=== PATIENT | female | born 1950 | race Caucasian/White ===

== ENCOUNTER 2020-12-29 10:21 | Outpatient (CLI) | payer MEDICARE, SELFPAY ==
[2020-12-29 14:57] LABS: SARS-CoV-2 RNA PCR Negative (Negative)
== END 2020-12-29 10:22 | disposition home or self-care (01) ==
LOC: CHSLAB 10:24
PROVIDERS: Visit Provider Family Medicine
DX: Z01.818 Encounter for other preprocedural examination (principal); Z20.822 Contact with and (suspected) exposure to COVID-19
CPT/HCPCS: C9803; U0003; U0005

== ENCOUNTER 2021-01-02 11:09 | Outpatient (CLI) | payer MEDICARE, SELFPAY ==
[2021-01-02 12:37] LABS: SARS-CoV-2 RNA PCR Negative (Negative)
== END 2021-01-02 11:10 | disposition home or self-care (01) ==
LOC: CHSLAB 11:12
PROVIDERS: Visit Provider Family Medicine
DX: Z01.818 Encounter for other preprocedural examination (principal); Z20.822 Contact with and (suspected) exposure to COVID-19
CPT/HCPCS: C9803; U0003; U0005

== ENCOUNTER 2024-01-19 11:55 | Outpatient (CLI) | payer MEDICARE, SELFPAY ==
--- NOTE | ~2024-01-19 | XR_ITS ---
EXAMINATION: XR_[id number]_CR DATE: 01/19/2024 12:50 INDICATION: Cervical radiculopathy. TECHNIQUE: 4 views of cervical spine were obtained. COMPARISON: None. FINDINGS: There is 2 mm anterolisthesis of C4 on C5 and 3 mm anterolisthesis of C7 on T1. Vertebral b yaz heights are normal. There is moderately decreased disc height at C3-C4 and C4-C5 and severely dec reased disc height at C5-C6 and C6-C7. There is multilevel facet joint osteoarthritis, severe bilater ally at C7-T1. There is mild central canal stenosis at C4-C5, C5-C6, and C6-C7. No prevertebral soft tissue swelling. IMPRESSION: 1. Severe cervical spondylosis. Reviewed, dictated and finalized at location A.
== END 2024-01-19 11:56 | disposition home or self-care (01) ==
LOC: CHSIMG 12:01
PROVIDERS: PCP Physician Assistant; Visit Provider Physician Assistant
DX: M54.12 Radiculopathy, cervical region (principal); M43.02 Spondylolysis, cervical region
CPT/HCPCS: 72040

== ENCOUNTER 2024-02-01 10:34 | Outpatient (CLI) | payer MEDICARE, SELFPAY ==
--- NOTE | ~2024-02-01 | MR_ITS ---
EXAMINATION: MR cervical spine wo con DATE: 02/01/2024 11:12 INDICATION: Chronic neck pain. Spinal stenosis. TECHNIQUE: Magnetic resonance imaging (MRI) of the cervical spine was performed without intravenous c ontrast. Sequences included sagittal T2-weighted FSE, sagittal T2-weighted FS FSE, sagittal T1-weight ed FSE, axial MERGE, and axial T2-weighted FSE. COMPARISON: Cervical spine MRI 08/01/18 FINDINGS: There is 3 degrees levocurvature of cervical spine. There is mild kyphosis of cervical spin e. There is 2 mm anterolisthesis of C4 on C5 and C7 on T1. Vertebral body heights are normal. There i s moderately decreased disc height at C3-C4 and C4-C5 and severely decreased disc height at C5-C6 and C6-C7. The spinal cord signal intensity is normal. The following disc levels are specifically discus sed: C2-C3: There is a central protrusion. There is no uncovertebral joint osteoarthritis. There is modera te right facet joint osteoarthritis. There is mild right neural foraminal stenosis. There is no centr al canal stenosis. C3-C4: The disc is bulging. There is severe bilateral uncovertebral joint osteoarthritis. There is se constantino bilateral facet joint osteoarthritis. There is mild right and moderate left neural foraminal megha nosis. There is mild central canal stenosis. C4-C5: The disc is bulging. There is severe bilateral uncovertebral joint osteoarthritis. There is se constantino bilateral facet joint osteoarthritis. There is moderate right and mild left neural foraminal megha nosis. There is mild central canal stenosis. C5-C6: The disc is bulging. There is severe bilateral uncovertebral joint osteoarthritis. There is mo derate bilateral facet joint osteoarthritis. There is mild right and moderate left neural foraminal s tenosis. There is mild central canal stenosis. C6-C7: The disc is bulging. There is severe bilateral uncovertebral joint osteoarthritis. There is mo derate right and mild left facet joint osteoarthritis. There is mild bilateral neural foraminal steno sis. There is mild central canal stenosis. C7-T1: There is a central extrusion. There is no uncovertebral joint osteoarthritis. There is severe bilateral facet joint osteoarthritis. There is mild bilateral neural foraminal stenosis. There is mil d central canal stenosis. IMPRESSION: 1. Severe cervical spondylosis, stable from 08/01/18. Reviewed, dictated and finalized at location A.
== END 2024-02-01 10:35 | disposition home or self-care (01) ==
LOC: CHSIMG 10:38
PROVIDERS: PCP Physician Assistant; Visit Provider Physician Assistant
DX: M48.02 Spinal stenosis, cervical region (principal); M43.02 Spondylolysis, cervical region
CPT/HCPCS: 72141

== ENCOUNTER 2024-09-01 17:19 | Emergency (ER) | payer MEDICARE, SELFPAY ==
--- NOTE | ~2024-09-01 | XR_ITS ---
HISTORY: Fall, Lt. knee pain/bruising x3 days COMPARISON: None TECHNIQUE: 3 views of the left knee were performed FINDINGS: No acute or subacute fracture, erosion, lytic or sclerotic lesion. Medial tibiofemoral joint space narrowing is identified. No suprapatellar joint effusion is identified. The infrapatellar joint space is clear. Soft tissue swelling is identified anterior to the infrapatellar joint space. IMPRESSION: Trace degenerative disease, without acute fracture. Reviewed, dictated and finalized at location A.
[2024-09-01 17:21] VITALS: BP 126/77; PULSE 89; RESP 18; TEMP 36.8; O2SAT 96
--- OUTSIDE RECORDS SUMMARY | 2024-09-01 17:21 | XMS_ITS | Continuity of Care Document ---
Author Organization [facility] Address [address] [place] [address] [address] [place] [address] Phone Care Team Providers Care Acid Patroller Name Role Phone Luke Powell MD Unavailable Unavailable Allergies, Adverse Reactions, Alerts Substance Reaction Status Criticality No Known Allergies Active No Inform ation Procedures Procedure Date No Charge Refraction IOLMaster-Technical No Charge Orbscan Fundus Photography W/ Report No Charge GDX Retina Eye Exam, New Patient Advance Directives Directive Yes / No Effective Date File Name No Information Encounters Encounter Description Practice Location Reason(s) For Visit Diagnoses Date Provider Providers Copied on Encounter [facility], [address] [place] [address] [address], [place], [place], [id number], tel:[phone] SEC [facility] Ned No Information Andre Butler. [address] [facility] [address], [place], [place], [id number], [place]. tel:[phone] [facility], [address] [place] [address] [address], [place], [place], [id number], tel:[phone] SEC Thomas DANGELO Professional Cataract evaluation (chief complaint) Amblyopia, rightET (esotropia)Co mbined forms of age-related cataract, bilateralArcu s senilis of both corneasDry eye syndrome of left lacrimal glandChoroida l nevus, right 1 Andre Butler. [address], [place], [place], [id number], . tel:[phone] Referring Provider: Luke Andre Dontae, [address], [place], [address] . tel:[phone] Family History Family Member Type Diagnosis Age At Onset Problem Family history of Diabetes m rand Payers Payer name Insurance type Covered democrat ID Andrew thomas(s) AAR Medicare Complete CI [id number] [place] [id number] Social History Type Description Quantity Date Captured Comments Alcohol Use Details No Caffeine Use Details 3 cups per day Tobacco Use Status Smoking Status Heavy tobacco smoker Sex Female Chief Complaint And Reason For Visit No Information Reason For Referral Reason For Referral No Information Plan Of Treatment Date Type Action Status Goal Tobacco cessation counseling completed Patient Education Cataract Surgery: What to Expect at H~ completed History Of Present Illness Encounter Date Complaint History Of Prese nt Illness Cataract evaluation The 70 year old female presents for evaluation of Cataract evaluation in the right eye and left eye. Hx of CAT OU. Pt denies any past ocular injuries but reports grease popped in her OD once. Pt reports she has trouble reading street signs while driving, trouble driving at night and trouble reading small print up close, OU, x 20 yrs. Pt reports she doesn't use any gtts, OU. Functional Status Date Functional Assessmen t No Information Instructions Date Instruction Additional Infor mation Impression/Plan Assessments Type Assessment Date No Information Patient Care Teams Name Effective Dates (start - stop) Status Members No Information
--- OUTSIDE RECORDS SUMMARY | 2024-09-01 17:21 | XMS_ITS | Clinical Summary ---
Author Organization [facility] Address [address] [place] [address] Care Team Providers Care Plant Tender Name Role Phone Adelaide Tucker Primary Care Provider [phone] Annie Lucas CAR PINCHER-BC Unavailable Allergies No known active allergies Medications cyclobenzaprine 10 MG tablet Take 1 tablet by mouth 3 (three) times daily as needed. 10/16/2020 Active amLODIPine-eddie zepril 5-20 MG capsule Take 1 capsule by mouth daily. 12/02/2020 Active Active Problems No known active problems Social History Tobacco Use Types Packs/Day Years Used Date Smoking Tobacco: Every Day Alcohol Use Standard Drinks/Week Comments Never 0 (1 standard drink = 0.6 oz pur e alcohol) Comments Unknown Sex and Gender Information Value Date Recorded Sex Assigned at Not on file Legal Sex Female 4:12 PM CDT Gender Identity Not on file Sexual Orientation Not on file Last Filed Vital Signs Vital Sign Reading Time Taken Comments Blood Pressure 139/70 12/30/2020 9:29 AM CDT Pulse 89 12/30/2020 9:28 AM CDT Temperature - - Respiratory Rate 17 12/30/2020 9:28 AM CDT Oxygen Saturation 96% 12/30/2020 9:28 AM CDT Inhaled Oxygen Concentration - - Weight 76.2 kg (168 lb) 12/30/2020 9:28 AM CDT Height 162.6 cm (5' 4 ) 12/30/2020 9:28 AM CDT Body Mass Index 28.84 12/30/2020 9:28 AM CDT Plan of Treatment Health Maintenance Due Date Last Done Comments Colorectal Cancer Screening Colonoscopy (10 Years) 1950 Hepatitis C 12/07/1969 DTaP, Tdap and Td Vaccines ( 1 - Tdap) 12/07/1970 Pneumococcal Vaccine: 50+ Ye ars (1 of 2 - PCV) 12/07/1970 Mammogram Screening 1991 Zoster Vaccines (1 of 2) 12/07/2001 Annual Medicare Wellness Visit 12/07/2016 Dexa Scan (General) 12/07/2016 COVID-19 Vaccine ( - 2023-2 5 season) 2023 RSV Immunization or 60+ Years (1 - 1-dose 75+ series) 12/07/2026 Meningococcal B Vaccine Aged Out No l onger eligible based on patient's age to complete this topic Meningococcal Vaccine Aged Out No kevin matthias eligible based on patient's age to complete this topic RSV Immunizations Under 20 Months Aged Out No longer eligible based on patient's age to complete this topic Insurance MEDICAID Care Teams Plant Tender Relationship Specialty Start Date End [place] [address] PCP - General FAMILY PRACTICE 12/24/20 Annie Lucas, [place] [address] NURSE PRACTITIONER 12/24/20
--- NOTE | 2024-09-01 17:33 | ED_ITS ---
HPI - General Adult General Chief complaint: Extremity Injury, Lower Stated complaint: fall Time Seen by Provider: 09/01/24 17:32 History of Present Illness HPI narrative: Hayley is a 73F with a PMH of chronic neck pain, tobacco dependence that presented to the ED with a swollen left knee after she fell through a bad board on her deck 2 days ago. She had immediate pain but the swelling and discoloration are getting worse so she came in. No CP or dyspnea. Related Data Home Medications Medication Instructions Recorded Confirmed Last Taken Type amlodipine 10 mg tablet 20 mg PO DAILY 07/05/24 07/05/24 Unknown History aspirin 81 mg tablet,delayed 81 mg PO DAILY 07/05/24 07/05/24 Unknown History release (Adult Low Dose Aspirin) cyclobenzaprine 5 mg tablet 5 mg PO TID PRN 07/05/24 07/05/24 Unknown History Allergies Allergy/AdvReac Type Severity Reaction Status Date / Time gabapentin Allergy Mild Unknown Verified 09/01/24 17:29 Review of Systems 2 Review of Systems: All systems reviewed & are unremarkable except as noted in HPI and below PMFSH Past Medical History Medical History Low bone mass Tobacco dependence Surgical History Surgical History History of bilateral tubal ligation 1979 Hx of cholecystectomy AGE 32 Family History Family History Mother Hypertension Family history of dementia Father Family history of malignant neoplasm of bone, Onset Age: 81 Mother Hypertension Family history of dementia Other Cerebrovascular accident Diabetes mellitus Family history of cardiovascular disease Family history of throat cancer Social History Social History Smoking status: Current every day smoker Alcohol intake: never Exam 2 Const: General: cooperative, healthy appearing, comfortable, no acute distress, well developed, alert, awake and Physically active O rientation/consciousness: oriented to person, oriented to place and oriented to time HENMT: Head: normal to inspection, normocephalic and atraumatic Ears: h earing grossly normal bilaterally and external ears normal Face/Nose/Sinus: N ormal external nose present Eyes: General: appearance normal, both eyes and all related structures P eriorbital: periorbital findings normal Sclera: sclerae normal Pupils: E qual, round and reactive pupils present Neck: Neck: normal visual inspection Chest: Chest palpation & inspection: normal inspection of the chest Resp: Effort & Inspection: normal respiratory effort, able to speak in complete sentences and no respiratory distress Cardio: Jugular venous distension: no JVD Skin: General skin exam: normal color and no rashes or lesions noted Neuro: General: oriented to person, oriented to place and oriented to time Cranial nerves: Yes Equal, round and reactive pupils present Extrem: General: normal to inspection Course Course Emergency Course: ordered radiographs and labs. HISTORY: Fall, Lt. knee pain/bruising x3 days COMPARISON: None TECHNIQUE: 3 views of the left knee were performed FINDINGS: No acute or subacute fracture, erosion, lytic or sclerotic lesion. Medial tibiofemoral joint space narrowing is identified. No suprapatellar joint effusion is identified. The infrapatellar joint space is clear. Soft tissue swelling is identified anterior to the infrapatellar joint space. IMPRESSION: Trace degenerative disease, without acute fracture. Labs were significant for an elevated D-dimer. Lovenox was given and she was set up for and outpatient US. Vital Signs Vital signs: Vital Signs Temperature 98.3 F 09/01/24 17:21 Pulse Rate 89 09/01/24 17:21 Respiratory Rate 18 09/01/24 17:21 Blood Pressure 126/77 09/01/24 17:21 Pulse Oximetry 96 09/01/24 17:21 Oxygen Delivery Room Air 09/01/24 17:21 Temperature 98.3 F 09/01/24 17:21 Pulse Rate 89 09/01/24 17:21 Respiratory Rate 18 09/01/24 17:21 Blood Pressure 126/77 09/01/24 17:21 Pulse Oximetry 96 09/01/24 17:21 Oxygen Delivery Room Air 09/01/24 17:21 Medical Decision Making Vital Signs Vital Signs: Vital Signs Temperature 98.3 F 09/01/24 17:21 Pulse Rate 89 09/01/24 17:21 Respiratory Rate 18 09/01/24 17:21 Blood Pressure 126/77 09/01/24 17:21 Pulse Oximetry 96 09/01/24 17:21 Oxygen Delivery Room Air 09/01/24 17:21 Temperature 98.3 F 09/01/24 17:21 Pulse Rate 89 09/01/24 17:21 Respiratory Rate 18 09/01/24 17:21 Blood Pressure 126/77 09/01/24 17:21 Pulse Oximetry 96 09/01/24 17:21 Oxygen Delivery Room Air 09/01/24 17:21 Lab Data 09/01/24 18:46 09/01/24 18:46 Labs: Lab Results 09/01/24 Range/Units 18:46 WBC 10.3 (4.8-10.8) K/mm3 RBC 4.89 (4.20-5.40) M/mm3 Hgb 14.7 H (11.7-13.8) g/dL Hct 45.8 H (35.0-42.0) % MCV 93.7 (78.0-102.0) fL MCH 30.1 (27.0-31.0) pg MCHC 32.1 (32-36) g/dL RDW 13.4 (11.6-14.4) % Plt Count 196 (150-420) K/mm3 MPV 9.8 (9.2-11.8) fl Immature Gran % (Auto) 0.3 H (0.0-0.0) % Neut % (Auto) 59.7 (50.0-70.0) % Lymph % (Auto) 31.6 (18.0-42.0) % Baldwin % (Auto) 5.6 (2.0-11.0) % Eos % (Auto) 2.4 (1.0-6.0) % Baso % (Auto) 0.4 (0.0-1.0) % Lymph # (Auto) 3.25 (1.10-4.50) K/mm3 Baldwin # (Auto) 0.58 (0.10-0.90) K/mm3 Eos # (Auto) 0.25 (0.02-0.50) K/mm3 Baso # (Auto) 0.04 (0.00-0.10) K/mm3 Abs Immat Gran (auto) 0.03 H (0.00-0.00) K/mm3 Absolute Neuts (auto) 6.15 (1.70-7.20) K/mm3 Absolute Nucleated RBC 0.00 (0.00-0.00) K/mm3 Nucleated RBC % 0.0 (0-0.0) % PT 10.8 (9.50-12.1) Seconds INR 1.0 D-Dimer 4.34 H* (0.19-0.50) mg/L Sodium 143 (136-145) mmol/L Potassium 3.9 (3.5-5.1) mmol/L Chloride 105 (98-108) mmol/L Carbon Dioxide 29 (21-32) mmol/L Anion Gap 9 (4-12) mmol/L BUN 17 (7-18) mg/dL Creatinine 1.11 H (0.55-1.02) mg/dL Estim Creat Clear Calc 37 ml/min Estimated GFR 48 L (59 - ) Glucose 68 L (70-99) mg/dL Calculated Osmolality 295 (285-295) mOsm/kg Calcium 9.2 (8.5-10.1) mg/dL Total Bilirubin 0.7 (0.00-1.00) mg/dL AST 19 (15-37) U/L ALT 30 (14-59) U/L Alkaline Phosphatase 76 (46-116) U/L Total Protein 7.1 (6.4-8.2) g/dL Albumin 3.8 (3.4-5.0) g/dL Discharge Plan Discharge Clinical Impression: Edema of left lower extremity Patient Disposition: Home Condition: Stable Instructions: Enoxaparin (By injection) Additional Instructions: Please return tomorrow before 0700 to have the ultrasound completed. Return for any new, concerning or worsening symptoms in the mean time. Patient Language: Upper Sorbian Prescriptions: New enoxaparin [Lovenox] 80 mg/0.8 mL syringe 80 mg subcut Q12H Qty: 1 0RF No Action aspirin [Adult Low Dose Aspirin] 81 mg tablet,delayed release (DR/EC) 81 mg PO DAILY cyclobenzaprine 5 mg tablet 5 mg PO TID PRN amlodipine 10 mg tablet 20 mg PO DAILY Other Ambulatory Orders: US venous doppler LE LT (Routine) Timeframe: 1 Day Facility: [facility] [place] - Location: [facility] Imaging Ordered By: Jefe Martinez Follow-up/Referrals: Izabella,ZACHERY Washington [Primary Care Provider] -
--- OUTSIDE RECORDS SUMMARY | 2024-09-01 17:44 | XMS_ITS | Data Portability ---
Author Organization [facility] Address [address] [place] [address] Care Team Providers Care Creative Services Designer Name Role Phone ISABELA ARTEMIO Primary Care Provider [phone] Assessment No assessment recorded. Plan of Treatment Reminders Order Date Submit Date Provider Last Modified By Organization Details Last Modified Time Details Appointments None recorded. Lab CBC 2023 024 [facility], [address] [facility] [address], [place], [address], 4 10:14:54 CMP, serum or plasma 2023 024 [facility], [address] [facility], [place], [address], 4 10:14:52 lipid panel, serum 2023 024 [facility], [address] [facility], [place], [address], 4 10:14:52 HbA1c (hemoglob in A1c), blood 2023 024 [facility] In-Office Order, Internal Use Only DO Not Attach Compendium DO Not Attach Compendium, Do Not Delete/merge, [id number] 4 15:10:45 Referral pain managemen t referral 2024 025 daniel Gray MD, [address], [place], [address], 5 15:41:03 Procedures None recorded. Surgeries None recorded. Imaging XR, cervical spine, 2 or 3 view 2023 [facility] (Registration ), [address] [place], [address], 4 21:01:56 Medication Orders amlodipin e 2.5 mg tablet 2024 025 [facility] [address], [address], 5 16:24:44 captopril 25 mg tablet 2024 025 [facility] [address] In [facility], [address] [place] [address], [address], 5 16:24:44 amoxicill in 875 mg tablet 2023 025 [facility][id number], [address], [place], [place], [id number], 5 15:40:48 cyclobenz aprine 5 mg tablet 2023 025 [facility] #05043, [address], [place], [place], [id number], 5 15:41:04 celecoxib 200 mg capsule 2023 024 [facility] #13281, [address], [place], [place], [id number], 5 15:40:46 pregabali n 75 mg capsule 2023 024 [facility] #99644, [address], [place], [place], [id number], 4 16:49:34 Patient TargetsNo targets recorded. Patient Instructions Encounter Date Encounter Id Patient Instructions Last Modified By Organization Details Last Modified Time 11/13/2023 [id number] A healthy lifestyle: care instructions jnanney Not available 11/13/2023 14:48:26 learning about high blood pressure jnanney Not available 11/13/2023 14:48:26 03/13/2024 [id number] A healthy lifestyle: care instructions jnanney Not available 03/13/2024 15:10:42 cervical spinal stenosis: care instructions jnanney Not available 03/13/2024 15:10:42 Acute Sinusitis: Care Instructions jnanney Not available 03/13/2024 15:12:18 08/27/2024 [id number] learning about high blood pressure jnanney Not available 08/27/2024 16:24:42 A healthy lifestyle: care instructions jnanney Not available 08/27/2024 16:26:40 Reason for Referral Pain Management Referral for Cervical radiculopathy Referring Physician: Artemio Parekh, Family Medicine, Encounter Date: 08/27/2024 Results Created Date Observation Date Name Description Value Unit Range Abnormal Flag Note LastModifiedBy Organization Detail LastModifiedTime 11/13/19 24 11/14/2023 LIPID PANEL cholesterol, total 244 mg/dL 100-19 9 above high normal Not Available [address], [address], 11/14/2023 10:14:52 11/13/19 24 11/14/2023 LIPID PANEL triglyceride s 218 mg/dL 0-149 above high normal Not Available [address], [address], 11/14/2023 10:14:52 11/13/19 24 11/14/2023 LIPID PANEL HDL cholesterol 34 mg/dL >39 below low normal Not Available [address], [address], 11/14/2023 10:14:52 11/13/19 24 11/14/2023 LIPID PANEL VLDL cholesterol elmira 41 mg/dL 5-40 above high normal Not Available [facility] [address], [address], 11/14/2023 10:14:52 11/13/19 24 11/14/2023 LIPID PANEL LDL chol calc ([facility]) 169 mg/dL 0-99 above high normal Not Available [address], [address], 11/14/2023 10:14:52 11/13/19 24 11/14/2023 COMP. METAB OLIC PANEL (14) glucose 166 mg/dL 70-99 above high normal Not Available [address], [address], 11/14/2023 10:14:52 11/13/19 24 11/14/2023 COMP. METAB OLIC PANEL (14) BUN 18 mg/dL 8-27 Not Available [address], [address], 11/14/2023 10:14:52 11/13/19 24 11/14/2023 COMP. METAB OLIC PANEL (14) creatinine 0.98 mg/dL 0.57-1 .00 Not Available [address], [address], 11/14/2023 10:14:52 11/13/19 24 11/14/2023 COMP. METAB OLIC PANEL (14) eGFR 62 mL/mi n/1.7 3 >59 Not Available [address], [address], 11/14/2023 10:14:52 11/13/19 24 11/14/2023 COMP. METAB OLIC PANEL (14) BUN/creatini ne ratio 18 12-28 Not Available [address], [address], 11/14/2023 10:14:52 11/13/19 24 11/14/2023 COMP. METAB OLIC PANEL (14) sodium 142 mmol/ L 134-14 4 Not Available [address], [address], 11/14/2023 10:14:52 11/13/19 24 11/14/2023 COMP. METAB OLIC PANEL (14) potassium 4.8 mmol/ L 3.5-5. 2 Not Available [address], [address], 11/14/2023 10:14:52 11/13/19 24 11/14/2023 COMP. METAB OLIC PANEL (14) chloride 101 mmol/ L 96-106 Not Available [address], [address], 11/14/2023 10:14:52 11/13/19 24 11/14/2023 COMP. METAB OLIC PANEL (14) carbon dioxide, total 25 mmol/ L 20- Not Available [address], [address], 11/14/2023 10:14:52 11/13/19 24 11/14/2023 COMP. METAB OLIC PANEL (14) calcium 9.7 mg/dL 8.7-10 .3 Not Available [address], [address], 11/14/2023 10:14:52 11/13/19 24 11/14/2023 COMP. METAB OLIC PANEL (14) protein, total 6.9 g/dL 6.0-8. 5 Not Available [address], [address], 11/14/2023 10:14:52 11/13/19 24 11/14/2023 COMP. METAB OLIC PANEL (14) albumin 4.5 g/dL 3.8-4. 8 Not Available [address] [place], [address], 11/14/2023 10:14:52 11/13/19 24 11/14/2023 COMP. METAB OLIC PANEL (14) globulin, total 2.4 g/dL 1.5-4. 5 Not Available [address], [address], 11/14/2023 10:14:52 11/13/19 24 11/14/2023 COMP. METAB OLIC PANEL (14) bilirubin, total 0.8 mg/dL 0.0-1. 2 Not Available [address], [address], 11/14/2023 10:14:52 11/13/19 24 11/14/2023 COMP. METAB OLIC PANEL (14) alkaline phosphatase 87 IU/L 44-121 Not Available [address], [address], 11/14/2023 10:14:52 11/13/19 24 11/14/2023 COMP. METAB OLIC PANEL (14) AST (SGOT) 25 IU/L 0-40 Not Available [address], [address], 11/14/2023 10:14:52 11/13/19 24 11/14/2023 COMP. METAB OLIC PANEL (14) ALT (SGPT) 27 IU/L 0-32 Not Available [address], [address], 11/14/2023 10:14:52 11/13/19 24 11/14/2023 SANTI RODAS T interpretati on Note Suppl brian jang is avail able. Not Available [address], [address], 11/14/2023 10:14:53 11/13/19 24 11/14/2023 CARDI LUC RODAS T pdf . Not Available [address], [address], 11/14/2023 10:14:53 11/13/19 24 11/14/2023 CBC, PLATE LET, NO DIFFE RENTI AL WBC 10.9 x10e3 /uL 3.4-10 .8 above high normal Not Available [address], [address], 11/14/2023 10:14:54 11/13/19 24 11/14/2023 CBC, PLATE LET, NO DIFFE RENTI AL RBC 5.52 x10e6 /uL 3.77-5 .28 above high normal Not Available [address], [address], 11/14/2023 10:14:54 11/13/19 24 11/14/2023 CBC, PLATE LET, NO DIFFE RENTI AL hemoglobin 16.4 g/dL 11.1-1 5.9 above high normal Not Available [address], [address], 11/14/2023 10:14:54 11/13/19 24 11/14/2023 CBC, PLATE LET, NO DIFFE RENTI AL hematocrit 50.7 % 34.0-4 6.6 above high normal Not Available [address], [address], 11/14/2023 10:14:54 11/13/19 24 11/14/2023 CBC, PLATE LET, NO DIFFE RENTI AL MCV 92 fL 79-97 Not Available [address], [address], 11/14/2023 10:14:54 11/13/19 24 11/14/2023 CBC, PLATE LET, NO DIFFE RENTI AL MCH 29.7 pg 26.6-3 3.0 Not Available [address], [address], 11/14/2023 10:14:54 11/13/19 24 11/14/2023 CBC, PLATE LET, NO DIFFE RENTI AL MCHC 32.3 g/dL 31.5-3 5.7 Not Available [address], [address], 11/14/2023 10:14:54 11/13/19 24 11/14/2023 CBC, PLATE LET, NO DIFFE RENTI AL RDW 13.2 % 11.7-1 5.4 Not Available [address], [address], 11/14/2023 10:14:54 11/13/19 24 11/14/2023 CBC, PLATE LET, NO DIFFE RENTI AL platelets 232 x10e3 /uL 150-45 0 Not Available [address], [address], 11/14/2023 10:14:54 11/13/19 24 11/13/2023 HbA1c (hemo globi n A1c), blood HbA1c 5.9 Not Available In-Office Order Internal Use Only DO Not Attach Compendium DO Not Attach Compendium, Do Not Delete/merge, [id number] 11/13/2023 14:46:32 01/19/20 24 01/19/2024 XR, cervi elmira spine , 2 or 3 view No observ ation [facility] [address] [place], [address], 01/22/2024 12:30:04 02/01/20 24 02/01/2024 MRI, cervi elmira spine , w/o contr ast No observ ation record ed. [facility] [address] [place], [address], 02/02/2024 11:15:04 Result Notes None recorded. Procedures Surgical History Date Name Laterality Status Provider Name and Address Organization Details Recorded Time 04/17/19 20 Date of Last Mammogram completed GONZALO Dias - [facility] 11/13/2023 14:16:29 thyroidectomy completed GONZALO Dias - [facility] 11/13/2023 14:22:29 Cholecystectomy completed Jaylene Dasilva [place] - [facility] 11/13/2023 14:22:39 Imaging Results Imaging Date Name Status LastModified by Organiz ation Details LastModified Time 01/19/2024 XR, cervical spine, 2 or 3 view completed [facility] [address] [place], [address], 01/22/2024 12:30:04 02/01/2024 MRI, cervical spine, w/o contrast completed [facility] [address] [place], [address], 02/02/2024 11:15:04 Procedure Notes None recorded. Medical Equipment None Reported. Allergies Allergen ID Allergen Name Allergen Category Reaction Reaction Severity Criticality Documentation Date Start Date Code Code System Note Provider Name and Address Organization Details Recorded Time 642870 tramadol medicatio n rash Not available Not available 11/13/2023 67501 RxNorm GONZALO Dias [facility] 4 14:14:06 226343 atorvasta tin medicatio n arthralgi a (joint pain) Not available Not available 11/14/2023 12182 RxNorm GONZALO Aguiar [facility] 4 11:29:17 Medications Name Sig Start Date Stop Date Status Note LastModified by Organization Details LastModified Time celecoxib 200 mg capsule TAKE 1 CAPSULE BY MOUTH EVERY DAY 08/27 completed Not Available Not Available Not Available atorvastati n 40 mg tablet TAKE 1 TABLET BY MOUTH WITH THE EVENING MEAL 11/12 completed Not Available Not Available Not Available atorvastati n 20 mg tablet Take 1 tablet every day by oral route for 90 days. 11/13 completed Not Available Not Available Not Available tizanidine 2 mg tablet TAKE 1 TABLET BY MOUTH TWICE DAILY NEEDED FOR MUSCLE SPASMS 11/12 completed Not Available Not Available Not Available hydrocodone 5 mg-acetamin ophen 325 mg tablet TAKE 1 TABLET BY MOUTH EVERY 6 HOURS NEEDED FOR PAIN 11/12 completed Not Available Not Available Not Available amlodipine 2.5 mg tablet Take 1 tablet every day by oral route for 90 days. 2024 active Not Available Not Available Not Avai lable metronidazo le 500 mg tablet TAKE 1 TABLET BY MOUTH THREE TIMES DAILY 11/12 completed Not Available Not Available Not Available acetaminoph en 300 mg-codeine 30 mg tablet TAKE 1 TABLET BY MOUTH THREE TIMES DAILY NEEDED FOR PAIN 11/12 completed Not Available Not Available Not Available ciprofloxac in 500 mg tablet TAKE 1 TABLET BY MOUTH TWICE DAILY 11/12 completed Not Available Not Available Not Available hydrocodone 10 mg-acetamin ophen 325 mg tablet TAKE 1 TABLET BY MOUTH EVERY 6 HOURS NEEDED FOR PAIN 11/12 completed Not Available Not Available Not Available amoxicillin 875 mg tablet 08/27 completed Not Available Not Available Not Available amlodipine 5 mg-benazepr il 20 mg capsule TAKE 1 CAPSULE BY MOUTH DAILY active Not Available Not Available No t Available oseltamivir 75 mg capsule 11/12 completed Not Available Not Available Not Available captopril 25 mg tablet Take 1 tablet every day by oral route for 90 days. 2024 active Not Available Not Available Not Avai lable gabapentin 300 mg capsule TAKE 1 CAPSULE BY MOUTH THREE TIMES DAILY 11/12 completed Not Available Not Available Not Available aspirin 81 mg chewable tablet Chew 1 tablet every day by oral route. active Not Available Not Available No t Available methylpredn isolone 4 mg tablets in a dose pack DIRECTED 11/12 completed Not Available Not Available Not Available albuterol sulfate HFA 90 mcg/actuati on aerosol inhaler INHALE 2 PUFFS EVERY 4 HOURS NEEDED 11/12 completed Not Available Not Available Not Available ezetimibe 10 mg tablet TAKE 1 TABLET BY MOUTH EVERY DAY 01/17 completed Not Available Not Available Not Available cyclobenzap rine 5 mg tablet Take 1 tablet 3 times a day by oral route for 30 days. 08/27 completed Not Available Not Available Not Available pregabalin 25 mg capsule TAKE 1 CAPSULE BY MOUTH TWICE DAILY 11/13 completed Not Available Not Available Not Available pregabalin 75 mg capsule TAKE 1 CAPSULE BY MOUTH TWICE DAILY 01/17 completed Not Available Not Available Not Available Vitals Date Recorded Body height Body mass index (BMI) Body weight Oxygen saturation Oxygen saturation in Arterial blood by Pulse oximetry Heart rate Systolic blood pressure Diastolic blood pressure Provider Name and Address Organization Details Last Updated DateTime 4 152.4 cm 31.9 kg/m2 86160.2 6 g 97 % 97 % 100 /min 124 mm[Hg] 72 mm[Hg] Jaylene Dasilva MA [facility] 4 14:24:39 Date Recorded Body height Body mass index (BMI) Body weight Oxygen saturation Oxygen saturation in Arterial blood by Pulse oximetry Heart rate Systolic blood pressure Diastolic blood pressure Provider Name and Address Organization Details Last Updated DateTime 4 152.4 cm 31.2 kg/m2 22949.7 8 g 97 % 97 % 105 /min 114 mm[Hg] 70 mm[Hg] Jaylene Dasilva MA [facility] 4 16:47:28 Date Recorded Body height Body mass index (BMI) Body weight Oxygen saturation Oxygen saturation in Arterial blood by Pulse oximetry Heart rate Systolic blood pressure Diastolic blood pressure Provider Name and Address Organization Details Last Updated DateTime 4 152.4 cm 31.9 kg/m2 18645.6 6 g 94 % 94 % 99 /min 116 mm[Hg] 75 mm[Hg] Aishwarya Rodriguez [facility] 4 14:54:35 Date Recorded Body height Body mass index (BMI) Body weight Oxygen saturation Oxygen saturation in Arterial blood by Pulse oximetry Heart rate Systolic blood pressure Diastolic blood pressure Provider Name and Address Organization Details Last Updated DateTime 5 152.4 cm 32 kg/m2 57373.1 5 g 95 % 95 % 102 /min 130 mm[Hg] 84 mm[Hg] Stefanie Okeefe MA [facility] 5 15:43:04 Social History Question Answer Notes LastModified by Organizat ion Details LastModified Time Tobacco Smoking Status Current Every Day Smoker GONZALO Dias, [place] - [place] 11/13/2023 14:21:40 Are You Blind Or Do You Have Difficulty Seeing? No Information not available 11/13/2023 What Is Your Level Of Caffeine Consumption? Heavy Information not available 11/13/2023 Are You Deaf Or Do You Have Serious Difficulty Hearing? No Information not available 11/13/2023 What Type Of Diet Are You Following? REGULAR Information not available 11/13/2023 What Was The Date Of Your Most Recent Tobacco Screening? 08/27/2024 Information not available 08/27/2024 How Many Children Do You Have? 4 Information not available 11/13/2023 What Is Your Current Pack Years? 30ormorepack years Information not available 11/13/2023 What Is Your Relationship Status? Information not available 11/13/2023 Do You Use Your Seat Belt Or Car Seat Routinely? Yes Information not available 11/13/2023 Do You Have Smoke And Carbon Monoxide Detectors In Your Home? Yes Information not available 11/13/2023 Are You Passively Exposed To Smoke? Yes Information no t available 11/13/2023 How Much Tobacco Do You Smoke? 0.5 PPD Information not available 11/13/2023 Do You Use Sunscreen Routinely? No Information not available 11/13/2023 Has Tobacco Cessation Counseling Been Provided? Yes Information not available 11/13/2023 On What Date Was Tobacco Cessation Counseling Provided? 08/27/2024 Information not available 08/27/2024 How Many Years Have You Smoked Tobacco? 50 Information not available 11/13/2023 Sex: Female Functional Status Question Answer Note LastModified by Organizat ion Details LastModified Time Do you use any illicit or recreational drugs? No Information not available 08/27/2024 Do you or have you ever used any other forms of tobacco or nicotine? No Information not available 11/13/2023 What is your level of alcohol consumption? None Information not available 11/13/2023 Are you currently employed? No Information not available 11/13/2023 Are you able to care for yourself? Yes Information not available 11/13/2023 What is your exercise level? None Information not available 11/13/2023 Mental Status Question Answer Note LastModified by Organization D etails LastModified Time Do you feel stressed (tense, restless, nervous, or anxious, or unable to sleep at night)? [id number] Information not available 11/13/2023 Family History Relationship Description Onset Age of this Age Resolved Age Notes LastModified by Organization Details LastModified Time Mother Dementia [email or web address] Not available 11/13/2023 14:18:53 Mother Hypertensive disorder kclarkma Not available 2023 14:19:15 Father Malignant tumor of pharynx kclarkma Not available 2023 14:19:36 Father Malignant neoplasm of bone 81 kclarkma Not available 2023 14:19:54 Brother Heart valve disorder kclarkma Not available 2023 14:20:23 Sister Malignant tumor of breast kclarkma Not available 2023 14:20:48 Medical History Condition Response Coronary Artery Disease N Other N Atrial Fibrillation N High Blood Pressure Y Kidney or Bladder Problems N Thyroid Problems N GI Problems Y Depression N COPD N Blood Clots N Have you had a mammogram in the last yea r? N Eating Disorder N Skin Problems N Anemia N Heart Attack (DE) N Anxiety Disorder N Diabetes N Muscle, Joint, or Bone Problems N Arthritis Y Seizures/Epilepsy N Have you had a colonoscopy in the last 1 0 years? N Acid Reflux (GERD) N Cancer N Stroke N Asthma N Allergies N Have you had a PSA blood test in the las t year? N ADHD N Substance Abuse N High Cholesterol Y Hepatitis N Liver Disease N Schizophrenia N Headaches N Osteoporosis N Heart Failure N Gynecological History Statement/Question Response Date of Last Mammogram 04/17/2019 Obstetrics History GPAL:G 4 P 4 0 0 2 Type Value Full Term 4 Living 2 Total 4 Past Encounters Encounter ID Performer Location Encounter Start Date Encounter Closed Date Diagnosis/Indication Diagnosis SNOMED-CT Code Diagnosis ICD10 Code Diagnosis Note [id number] MD [facility] [address] [place] [address] 11/13/2023 13:34:19 11/14/2023 15:20:40 Cervical radiculopathy 28557502 M54.12 Essential hypertension 49307193 I10 Overweight 627402439 E66 .3 [id number] Artemio Parekh PA-C [facility] [address] [place] [address] 01/18/2024 16:40:14 01/25/2024 10:38:19 Cervical radiculopathy 58551044 M54.12 [id number] Navneet Meek MD [facility] [address] [place] [address] 03/13/2024 14:34:22 03/19/2024 13:58:43 Spinal stenosis in cervical region 17438470 M48.02 Overweight 253640052 E66 .3 Acute maxi llary sinusitis 12366097 J01.01 [id number] Navneet Meek MD [facility] [address] [place] [address] 08/27/2024 15:35:17 08/28/2024 12:27:27 Essential hypertension 34857626 I10 Cervical radiculopathy 63450835 M54.12 Obese class I 4124582339 56708 E66.811 Health Concerns Section Related Observation LastModified by Organization Detai ls LastModified Time None Recorded Concern Status LastModified by Organization Details LastModified Time None Recorded Advance Directives Directive None Recorded Payers Encounter Date Sequence Insurance Name Policy Number Policy Harris Covered Member ID Harris Member ID Guarantor Name 11/13/2023 1 [facility] (MEDICARE REPLACEMENT/A DVANTAGE - HMO) [id number] Hayley J Crets [id number] Hayley Crets 01/18/2024 1 [employer] (MEDICARE REPLACEMENT/A DVANTAGE - PPO) [id number] Hayley J Crets [id number] Hayley Crets 03/13/2024 1 [employer] (MEDICARE REPLACEMENT/A DVANTAGE - PPO) [id number] Hayley J Crets [id number] Hayley Crets 08/27/2024 1 [employer] (MEDICARE REPLACEMENT/A DVANTAGE - [place]PO) [id number] Hayley Patton [id number] Hayley Patton Notes Date Note Type Note Provider Name and Address Organization Details Recorded Time 11/13/2023 text/html getting established..has some supposedly benign financial accounting analyst history..a breast mass and family hx of breast cancer as well as an enlarged uterus both supposedly benign......given referral to Design Studio Consultant...also says she left her previous primary due to poor patient relation ...report s upper extremities neuropathy Artemio Parekh PA-C Attn: Accounting, [address] [place], [place], [address] [place] [address], [facility] 11/13/2023 14:49:18 01/18/2024 text/html says she has bee n dizzy inside since stopping pregabalin...1 month ago...she stopped it due to side effects...nerve damage in both arms and neck...she has been seeing other doctors so report is questionable...say s she has had MRI on her neck... Artemio Parekh PA-C Attn: Accounting, [address] [place], [address], [facility] 01/18/2024 17:17:09 03/13/2024 text/html sinus infection and productive cough...was camping and began then 2 weeks ago...also left arm pain..cant pick it up without pain..surgery upcoming April...neuro surg.. Artemio Parekh PA-C Attn: Accounting, [address] [place], [place], [address] [place] [address], [facility] 03/13/2024 15:12:26 08/27/2024 text/html had a tick bite on rt torso...also says she is weighing options for cervical radiculopathy..als o says she has been reducing her bp med in half and its working Artemio Parekh PA-C Attn: Accounting, [address] [place], [place], [address] [place] [address], [facility] 08/27/2024 16:27:19 OBGyn Episode Ob Episode Information Episode Created Date Number of Fetuses Patient Bloodtype Patient rh Status Prepregnancy Weight lbs Domestic Partner Domestic Partner Phone Father Name Perinatology Physician Status 11/13/19 24 1 CLOSED Fetus Data First Name Last Name Admitted to NICU Weight (g) Sex Living Outcome Pediatric Complications Fetus ID Race Codes Race Delivery Type Full Term [id number] Dino Calculation Initial Dino Date Initial Exam Date Initial Exam Provider Initial Ultrasound Date Last Menstr [id number]|2024-09-01 17:44:00|2024-09-01 17:44:00|XMS_ITS|BKG DAEMON|External Medical Summaries|[id number]|" Clinical Summary Created on: September 01, 2024 Hayley Patton : 1950 Sex: Female Author Organization [facility] Address [address] [place] [address] Care Team Providers Care Creative Services Designer Name Role Phone Adelaide Tucker HUI Primary Care Provider [phone] Annie Lucas [facility]- Unavailable Allergies No known active allergies Medications [...] complete this topic Insurance MEDICAID Care Teams Creative Services Designer Relationship Specialty Start Date End [place] [address] PCP - General FAMILY PRACTICE 12/24/20 Annie Lucas, HEADWAITER/[place] [address] NURSE PRACTITIONER 12/24/20 "
--- OUTSIDE RECORDS SUMMARY | 2024-09-01 17:44 | XMS_ITS | Continuity of Care Document ---
Author Organization [facility] Address [address] [place] [address] [address] [place] [address] Phone Care Team Providers Care Bonding And Composite Fabricator Name Role Phone Luke Powell MD Unavailable [...] Diagnoses Date Provider Providers Copied on Encounter [facility], [address] [place] [address] [address], [place], [place], [id number], tel:[phone] SEC [facility] Ned No Information Andre Butler. [address] [facility] [address], [place], [place], [id number], [place]. tel:[phone] [facility], [address] [place] [address] [address], [place], [place], [id number], tel:[phone] SEC Thomas DANGELO Professional Cataract evaluation (chief complaint) Amblyopia, rightET (esotropia)Co mbined forms of age-related cataract, bilateralArcu s senilis of both corneasDry eye syndrome of left lacrimal glandChoroida l nevus, right 1 Andre Butler. [address], [place], [place], [id number], . tel:[phone] Referring Provider: Luke Andre Dontae, [address], [place], [address] . tel:[phone] Family History Family Member Type Diagnosis Age At Onset Problem Family history of Diabetes m rand Payers Payer name Insurance type Covered alliance party ID Andrew thomas(s) AAR Medicare Complete [place] [id number] [place] [id number] Social History Type Description Quantity Date Captured [...]
[2024-09-01 18:50] LABS: Basophils Absolute Auto 0.04 K/mm3 (0.00-0.10); Basophils Percent Auto 0.4 % (0.0-1.0); Eosinophils Absolute Auto 0.25 K/mm3 (0.02-0.50); Eosinophils Percent Auto 2.4 % (1.0-6.0); Hematocrit 45.8 % (35.0-42.0); Hemoglobin 14.7 g/dL (11.7-13.8); Immature Granulocyte Absolute 0.03 K/mm3 (0.00-0.00); Immature Granulocyte Percent A 0.3 % (0.0-0.0); Lymphocytes Absolute Auto 3.25 K/mm3 (1.10-4.50); Lymphocytes Percent Auto 31.6 % (18.0-42.0); Mean Corpuscular HGB Conc 32.1 g/dL (32-36); Mean Corpuscular Hemoglobin 30.1 pg (27.0-31.0); Mean Corpuscular Volume 93.7 fL (78.0-102.0); Mean Platelet Volume 9.8 fl (9.2-11.8); Monocytes Absolute Auto 0.58 K/mm3 (0.10-0.90); Monocytes Percent Auto 5.6 % (2.0-11.0); Neutrophils Absolute Auto 6.15 K/mm3 (1.70-7.20); Neutrophils Percent Auto 59.7 % (50.0-70.0); Platelet Count Result 196 K/mm3 (150-420); Red Blood Count 4.89 M/mm3 (4.20-5.40); Red Cell Distribution Width 13.4 % (11.6-14.4); White Blood Count 10.3 K/mm3 (4.8-10.8)
[2024-09-01 19:03] LABS: Prothrombin Time 10.8 Seconds (9.50-12.1)
[2024-09-01 19:04] LABS: Alanine Aminotransferase 30 U/L (14-59); Albumin Level 3.8 g/dL (3.4-5.0); Alkaline Phosphatase 76 U/L (46-116); Anion Gap 9 mmol/L (4-12); Aspartate Amino Transferase 19 U/L (15-37); Bilirubin,Total 0.7 mg/dL (0.00-1.00); Blood Urea Nitrogen 17 mg/dL (7-18); Calcium 9.2 mg/dL (8.5-10.1); Carbon Dioxide 29 mmol/L (21-32); Chloride 105 mmol/L (98-108); Estimated CRCL calculation 37 ml/min; Estimated Glomerular Filt Rate 48; Glucose 68 mg/dL (70-99); Osmolality Calculated 295 mOsm/kg (285-295); Potassium 3.9 mmol/L (3.5-5.1); Sodium 143 mmol/L (136-145); Total Protein 7.1 g/dL (6.4-8.2)
[2024-09-01 19:05] LABS: D Dimer 4.34 mg/L (0.19-0.50)
[2024-09-01] MEDS: ENOXAPARIN 100 MG/ML SYRINGE 75 MG SUB-Q (19:29)
[2024-09-01] MEDS: HYDROcodone/acetaminophen (*CRX) 5-325 MG TABLET 1 TAB PO (19:29)
[2024-09-01 19:45] VITALS: BP 137/87; PULSE 74; RESP 20; TEMP 36.9; O2SAT 98
== END 2024-09-01 19:45 | disposition home or self-care (01) ==
PROVIDERS: Emergency Provider Family Medicine; PCP Physician Assistant
DX: R60.0 Localized edema (principal); W13.3XXA Fall through floor, initial encounter; G89.29 Other chronic pain; M54.2 Cervicalgia; Z79.82 Long term (current) use of aspirin
CPT/HCPCS: 36415; 73562; 80053; 85025; 85380; 85610; 96372; 99283; A9270; J1650

== ENCOUNTER 2024-09-02 06:48 | Outpatient (CLI) | payer MEDICARE, SELFPAY ==
--- NOTE | ~2024-09-02 | US_ITS ---
LEFT LOWER EXTREMITY VENOUS ULTRASOUND Ordering provider: Jefe Martinez DO History: . R60.0 - Localized edema . Comparison: None. FINDINGS: --COMMON FEMORAL: Patent and free of thrombus. Normal compressibility, phasic flow and augmentation. --PROXIMAL SUPERFICIAL FEMORAL: Patent and free of thrombus. Normal compressibility, phasic flow and augmentation. --DISTAL SUPERFICIAL FEMORAL: Patent and free of thrombus. Normal compressibility, phasic flow and au gmentation. --POPLITEAL: Patent and free of thrombus. Normal compressibility, phasic flow and augmentation. --POSTERIOR TIBIAL: Patent and free of thrombus. Normal compressibility, phasic flow and augmentation . IMPRESSION: Negative left lower extremity venous US. No deep vein thrombosis. Reviewed, dictated and finalized at location A.
--- OUTSIDE RECORDS SUMMARY | 2024-09-02 06:52 | XMS_ITS | Clinical Summary ---
Author Organization [facility] Address [address] [place] [address] Care Team Providers Care Coagulator Name Role Phone Adelaide Tucker Primary Care Provider [phone] Annie Lucas [employer]ER[employer] HELPER-[employer] Unavailable Allergies No known active allergies Medications cyclobenzaprine 10 MG tablet Take 1 tablet by mouth 3 (three) times daily as needed. 10/16/2020 Active amLODIPine-edide zepril 5-20 MG capsule Take 1 capsule [...] complete this topic Insurance MEDICAID Care Teams Coagulator Relationship Specialty Start Date End Date [place] [address] PCP - General FAMILY PRACTICE 12/24/20 Annie Luacs, [place] [address] NURSE PRACTITIONER 12/24/20
== END 2024-09-02 06:49 | disposition home or self-care (01) ==
LOC: CHSLAB 06:50
PROVIDERS: PCP Physician Assistant; Visit Provider Family Medicine
DX: R60.0 Localized edema (principal); I82.402 Acute embolism and thrombosis of unspecified deep veins of left lower extremity
CPT/HCPCS: 93971